=== PATIENT | female | born 1995 | race Caucasian/White ===

== ENCOUNTER 2024-03-14 09:46 | Outpatient (REF) | payer OTHER, SELFPAY ==
[2024-03-14 10:45] LABS: MANUAL DIFF FLAG NO
[2024-03-14 11:51] LABS: Basophils Absolute Auto 0.1 X10*3/uL (0.0-0.2); Basophils Percent Auto 0.7 % (0-2); Eosinophils Absolute Auto 0.1 X10*3/uL (0.0-0.4); Eosinophils Percent Auto 0.7 % (0-4); Hematocrit 41.7 % (37.0-47.0); Imm Gran Abs Auto 0.03 X10*3/uL (0.00-0.03); Imm Gran Pct Auto 0.4 % (0.0-0.4); Lymphocytes Absolute Auto 2.9 X10*3/uL (1.2-4.9); Lymphocytes Percent Auto 39.4 % (20-40); Mean Corpuscular HGB Conc 33.6 g/dl (31.0-35.0); Mean Corpuscular Volume 92.5 fL (80.0-98.0); Mean Platelet Volume 11.2 fL (9.4-12.3); Monocytes Absolute Auto 0.5 X10*3/uL (0.1-1.2); Monocytes Percent Auto 6.2 % (2-11); Neutrophils Absolute Auto 3.8 x10*3/uL (2.0-8.3); Neutrophils Percent Auto 52.6 % (45-73); Platelet Count 231 X10*3/uL (160-400); Red Blood Count 4.51 X10*6/uL (4.20-5.50); Red Cell Distribution Width 12.3 % (11.0-16.0); White Blood Count 7.2 X10*3/uL (4.8-10.8)
[2024-03-14 12:49] LABS: Alanine Aminotransferase 32 U/L (0-31); Albumin Level 4.4 g/dL (3.5-5.0); Alkaline Phosphatase 77 U/L (39-117); Anion Gap 16 (12-20); Aspartate Amino Transferase 26 U/L (5-31); Bilirubin Total 0.4 mg/dL (0.0-1.0); Blood Urea Nitrogen 16 mg/dL (9-16); Calcium 9.8 mg/dL (8.4-10.2); Carbon Dioxide 25 mmol/L (22-29); Chloride 103 mmol/L (96-108); Estimated Glomerular Filt Rate > 60; Ferritin 57 ng/mL (10-122); Glucose Random 72 mg/dL (60-115); Iron 89 mcg/dL (30-160); Percent Iron Saturation 29 % (15-50); Potassium 3.9 mmol/L (3.3-5.1); Sodium 140 mmol/L (135-145); Total Iron Binding Capacity 312 mcg/dL (228-428); Total Protein 7.2 g/dL (6.5-8.0); Unsaturated Iron Binding 223 ug/dL
== END 2024-03-14 09:47 | disposition home or self-care (01) ==
LOC: HO.LAB 09:46
PROVIDERS: Visit Provider Preventive Medicine Public Health & General Preventive Medicine
DX: R53.83 Other fatigue (principal); R00.2 Palpitations; R06.02 Shortness of breath
CPT/HCPCS: 36415; 80053; 82728; 83540; 85025

== ENCOUNTER 2024-05-03 14:27 | Outpatient (AMB) | payer OTHER, SELFPAY ==
--- NOTE | 2024-05-03 14:29 | A.OFFVIS_ITS ---
Vital Signs 05/03/24 14:30 Height 5 ft 3 in Weight 128 lb 4.944 oz BMI 22.7 BP 105/59 L Blood Pressure Location Lt brachial Position Sitting Pulse 69 Intake Visit Reasons: Gastroesophageal reflux disease (GERD) Intake Note: Kimi presents as a new patient for GERD. CC: Patient c/o acid reflux for about 2 years. She states that she was treated with Omeprazole and per PT it helped but it did not completely got rid of it . She modified her diet trying to avoid acidic foods and her symptoms have improved. 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 Symptoms are worst after big meals. 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 Patient was sent to us by her PCP. Patient reports that she has been dealing with acid reflux on and off for several months. Patient was placed on PPI she believes it was omeprazole and reports that her symptoms got better, however patient also admits that she changed her diet. Patient stopped taking the medication when she went to see alternative medicine provider. Patient was taking naturopathic drops that were given to her by alternative medicine provider. Patient also reports that she changed her diet completely. Eating smaller meals. Patient states that she also drinking lots of fluids and is exercising a lot. Occasional epigastric pain postprandially depending on what she eats. Reports occasional dyspepsia without dysphagia or odynophagia. Patient denies any melena, hematochezia, unintentional weight loss or ribbon like stools. [facility] Surgical History H/O cervical biopsy Family History Father Crohn disease Social History Alcohol intake: current Alcohol intake frequency: holidays/special occasions only Patient Tobacco Use Status: Never used Tobacco Review of Systems Const Denies weight gain and Denies weight loss ENT Reports no additional complaints, Denies dysphagia and Denies odynophagia Card Reports no additional complaints Resp Reports no additional complaints GI Reports abdominal pain (Epigastric pain), Denies belching, Denies melena, Reports bloating, Denies change in bowel habits, Denies dysphagia, Denies excessive flatus, Denies dyspepsia, Reports heartburn, Denies diarrhea, Denies loose stools, Denies nausea, Denies odynophagia and Denies vomiting Reports no additional complaints Musc Reports no additional complaints Neuro Reports no additional complaints Psych Reports no additional complaints Endo Reports no additional complaints Physical Exam Vital Signs: Last Vital Signs Pulse 69 05/03/24 14:30 BP 105/59 L 05/03/24 14:30 BMI result Body Mass Index 22.7 Const General: healthy appearing, no acute distress and well developed Nutritional Appearance: well nourished Orientation/consciousness: patient oriented x3 Resp Effort & Inspection: normal respiratory effort, able to speak in complete sentences, no tracheal deviation and symmetric chest movement Auscultation: clear to auscultation bilaterally Cardio Rate: regular rate GI Inspection: Yes normal to inspection and No distended Palpation (GI): Soft to palpation, not firm, nontender and No hepatosplenomegaly present Auscultation: normal bowel sounds General: Yes no CVA tenderness Back/Spine/Pelvis Back: no CVA tenderness Skin General skin exam: elasticity normal, turgor normal and dry skin Neuro General: patient oriented x3 Psych Appearance: grossly normal Mental Status: mental status grossly normal Assessment & Plan Assessment & Plan (1) Postprandial epigastric pain: Code(s): R10.13 - Epigastric pain (2) Abdominal bloating: Code(s): R14.0 - Abdominal distension (gaseous) Plan Will hold off on giving patient any PPI for now. Patient is reluctant to taking any medications. Would rather avoid food if possible. Low FODMAP diet discussed with patient. List of food recommended as well as list of food to avoid given to patient. Patient reports epigastric pain occasionally and abdominal bloating depending on what she eats. Will rule out celiac. Will check for H pylori in the office today. Will do upper GI/small-bowel to rule out reflux/hiatal hernia. Will check lipase and liver profile. Patient will be sent for upper endoscopy to rule out duodenitis, gastritis, esophagitis, Barretts, H pylori. Avoid food spicy, any other triggers. Avoids eating late at night. Small meals more often. I will see patient after endoscopy, sooner on as needed basis. She is agreeable to this plan and verbalizes understanding of instructions. She was given the opportunity to ask questions and all questions answered. Thank you for allowing me to participate in her care Orders: Orders Transglutaminase IgA 05/04/24 R10.9 - Unspecified abdominal pain Vitamin B12 and Folate 05/04/24 R19.7 - Diarrhea, unspecified Vitamin D 25-OH (D2 and D3) 05/04/24 E55.9 - Vitamin D deficiency, unspecified FL upper GI small bowel 05/03/24 K21.9 - Gastro-esophageal reflux disease without esophagitis H Pylori Breath Test 05/03/24 K21.9 - Gastro-esophageal reflux disease without esophagitis Transglutaminase Ab IgG 05/04/24 R10.9 - Unspecified abdominal pain Lipase 05/04/24 R10.9 - Unspecified abdominal pain Liver Panel 05/04/24 R74.01 - Elevation of levels of liver transaminase levels Coding Level of Care Code Est Pt Level 3 (70899) Diagnoses Postprandial epigastric pain R10.13 Abdominal bloating R14.0 Time Spent (min) 40 Comment 30 minutes spent with patient and additional 10 minutes spent reviewing her records
[2024-05-03 14:30] VITALS: BP 105/59; PULSE 69; BMI 22.7
== END 2024-05-03 16:27 | disposition home or self-care (01) ==
PROVIDERS: Visit Provider Nurse Practitioner Family
DX: R10.13 Epigastric pain (principal); R14.0 Abdominal distension (gaseous)
CPT/HCPCS: 99213

== ENCOUNTER → 2024-05-03 14:27 | Outpatient (BNVA) | payer OTHER, SELFPAY ==
[2024-05-04 11:36] LABS: H Pylori Breath Test Negative (Negative)
== END ==
LOC: CF 05-04 12:37
PROVIDERS: Visit Provider Nurse Practitioner Family
DX: R10.13 Epigastric pain (principal); R14.0 Abdominal distension (gaseous); K21.9 Gastro-esophageal reflux disease without esophagitis
CPT/HCPCS: 83013

== ENCOUNTER 2024-05-04 09:10 | Outpatient (REF) | payer OTHER, SELFPAY ==
[2024-05-04 10:29] LABS: Alanine Aminotransferase 24 U/L (0-31); Albumin Level 4.2 g/dL (3.5-5.0); Alkaline Phosphatase 66 U/L (39-117); Aspartate Amino Transferase 23 U/L (5-31); Bilirubin Direct 0.1 mg/dL (0.0-0.5); Bilirubin Total 0.5 mg/dL (0.0-1.0); Lipase 15 U/L (8-78); Total Protein 6.8 g/dL (6.5-8.0)
[2024-05-04 11:11] LABS: Vitamin B12 1028 pg/mL (200-900)
[2024-05-05 13:44] LABS: Transglutaminase Ab IgG <1.0 U/mL; Transglutaminase IgA <1.0 U/mL
[2024-05-09 14:27] LABS: Vitamin D 25-OH, D2 <4 ng/mL; Vitamin D 25-OH, D3 26 ng/mL; Vitamin D 25-OH, Total 26 ng/mL (30-100)
== END 2024-05-04 09:11 | disposition home or self-care (01) ==
LOC: HO.LAB 09:10
PROVIDERS: PCP Internal Medicine; Visit Provider Nurse Practitioner Family
DX: R19.7 Diarrhea, unspecified (principal); R10.9 Unspecified abdominal pain; E55.9 Vitamin D deficiency, unspecified; R74.01 Elevation of levels of liver transaminase levels
CPT/HCPCS: 36415; 80076; 82306; 82607; 82746; 83690; 86364

== ENCOUNTER 2024-05-11 07:29 | Outpatient (REF) | payer OTHER, SELFPAY ==
--- NOTE | ~2024-05-11 | FL_ITS ---
EXAMINATION: XR UPPER GI SERIES WITH SMALL BOWEL CLINICAL INFORMATION: Reflux COMPARISON: None TECHNIQUE: Fluoroscopic air contrast upper GI examination was performed utilizing standard techniques with thin and thick barium and effervescent granules. Numerous spot images were obtained. FINDINGS: UPPER GI: Dual and single contrast images of the esophagus demonstrate normal caliber, contour, and mucosal pattern. No evidence of stricture, mass, or ulcerations identified. Esophageal peristalsis was normal. No evidence of hiatus hernia identified. A small amount of gastroesophageal reflux is seen in the distal esophagus. Dual contrast and single contrast images of the stomach demonstrated a normal contour. There is a foci of contrast pooling in the gastric antrum that may represents small superficial ulcer. No masses are present. Contrast freely passed into the gastric antrum and duodenal bulb without delay. Single and air-contrast images of the duodenal bulb demonstrate no abnormality. The duodenal sweep has a normal appearance, course, and mucosal fold appearance. SMALL BOWEL SERIES: Commercial Subcontractor view demonstrates normal/nonspecific bowel gas pattern. No dilated loops. Lung bases clear. Elevated right hemidiaphragm noted. No bony abnormalities. No abnormal calcifications or evidence of organomegaly. Normal-appearing SI joints. The imaged small bowel has a normal fold pattern and caliber. No masses or strictures or dilated loops are present. Contrast is observed in the right colon after 30 minutes. FLUOROSCOPY TIME: 4 minutes 2 seconds Number of Spot Images: 11 Number of Cine: 13 DOSE AREA PRODUCT: 1891 uGy-m2 (microgray-meter squared) FL/FL upper GI small bowel IMPRESSION: 1. Mild gastroesophageal reflux 2. There is a small focus of contrast pooling in the gastric antrum seen on one view that likely represents a small superficial aphthous ulcer. Recommend correlation with EGD. 3. Normal small bowel series. There is rapid transit of contrast to the right colon at 30 minutes, with no clear etiology evident. Recommend clinical correlation. This procedure was performed by Kalyan Myers PA-C, and supervised by Dr. Ta
== END 2024-05-11 07:30 | disposition home or self-care (01) ==
LOC: HO.XRAY 07:29
PROVIDERS: Visit Provider Nurse Practitioner Family
DX: K21.9 Gastro-esophageal reflux disease without esophagitis (principal)
CPT/HCPCS: 74240; 74248

== ENCOUNTER → 2024-05-11 07:30 | Outpatient (BNV) | payer OTHER, SELFPAY | PROVIDERS: Visit Provider Physician Assistant Surgical | DX: K21.9 Gastro-esophageal reflux disease without esophagitis (principal) | CPT/HCPCS: 74246; 74248 ==

== ENCOUNTER 2024-09-07 09:47 | Day surgery (SDC) | payer OTHER, SELFPAY ==
[2024-09-05 13:13] VITALS: BMI 22.7
--- NOTE | 2024-09-06 09:22 | HO.ANESPROP2 ---
Documented by User: Ailyn Leal NP 09/06/24 09:22 HPI - Anesthesia Eval Consult details Narrative: 29yo F for Upper Endoscopy PMFSH Family History Family History Father Crohn disease Surgical History Surgical History H/O cervical biopsy Social History Social History Alcohol intake: current Alcohol intake frequency: holidays/special occasions only Patient Tobacco Use Status: Never used Tobacco Use of substances other than those prescribed or required for medical reasons: Yes Substance Use Type Other:: edibles none last few days Substance Use Frequency: Occasionally Are you DNR?: No Advance Directives: No Advance Directives Information Provided: Yes Recently lost weight without trying: No Meds Allergies Allergy/AdvReac Type Severity Reaction Status Date / Time No Known Allergies Allergy Verified 09/07/24 10:01 Home Medications ?Medication ?Instructions ?Recorded ?Confirmed ?Last Taken ?Type ibuprofen 200 mg tablet 500 mg PO Q6H PRN 05/03/24 Unknown History omeprazole 20 mg capsule,delayed 20 mg PO DAILY 09/07/24 09/07/24 09/07/24 09:00 History release Exam Height,Weight and Vital Signs: Height 5 ft 3 in Weight 58.06 kg Assessment and Plan Assessment Anesthesia Assessment: Chart Reviewed Documented by User: Laura Price MD 09/07/24 10:31 PMFSH Active Problems Active Problems: GERD Family History Family History Father Crohn disease Surgical History Surgical History H/O cervical biopsy History of Problems with Anesthesia: No Social History Social History Alcohol intake: current Alcohol intake frequency: holidays/special occasions only Patient Tobacco Use Status: Never used Tobacco Use of substances other than those prescribed or required for medical reasons: Yes Substance Use Type Other:: edibles none last few days Substance Use Frequency: Occasionally Are you DNR?: No Advance Directives: No Advance Directives Information Provided: Yes Recently lost weight without trying: No Meds Allergies Allergy/AdvReac Type Severity Reaction Status Date / Time No Known Allergies Allergy Verified 09/07/24 10:01 Home Medications ?Medication ?Instructions ?Recorded ?Confirmed ?Last Taken ?Type ibuprofen 200 mg tablet 500 mg PO Q6H PRN 05/03/24 Unknown History omeprazole 20 mg capsule,delayed 20 mg PO DAILY 09/07/24 09/07/24 09/07/24 09:00 History release Exam Airway Mallampati Class: II TM Dist: >3cm Neck ROM: Full Loose/Missing/Broken Teeth: No Heart: RRR Lungs: CTA Assessment and Plan Assessment Anesthesia Assessment: Anesthesia Plan Discussed Final Anesthetic Review History of Problems with Anesthesia: No NPO: Yes ASA Class: II Final Preanesthetic Review: Meds/Allgs Chart Reviewed, Consent Obtained/Reviewed and Anes Risks/Benef Reviewed Patient Risk: Low Procedure Risk: Intermediate Anesthetic Plan Anesthetic Plan: MAC: Disposition: Standard PACU
[2024-09-07 10:01] VITALS: BMI 22.1
[2024-09-07 10:09] VITALS: BP 95/60; PULSE 71; RESP 15; TEMP 36.6; O2SAT 98
[2024-09-07 10:12] LABS: Urine Pregnancy NEGATIVE (NEGATIVE)
[2024-09-07 10:13] LABS: UPreg QC Valid YES
--- NOTE | 2024-09-07 10:15 | MHC.SHP ---
Pre-Procedural Eval Section A - 24 Hr Update-Section A only Date of Service: 09/07/24 Section B - Complete if H&P > 30 days Chief Complaint: gerd Relevant Family History (Specify if Yes): No Relevant Social History: None Present Medications: see Short Stay Collaborative assessment Medical History: Significant History (gerd) History of Previous Operations: Relevant previous surgery/procedure and date(s) (cervical bx) Allergies: Allergies Allergy/AdvReac Type Severity Reaction Status Date / Time No Known Allergies Allergy Verified 09/07/24 10:01 Review of Systems Sugical H&P ROS: Negative: Constitution, Cardiovascular, Respiratory, Neurological, Psychiatric, Hem-Onc, Allergic/Immunologic, Gastrointestinal, Genitourinary, Musculoskeletal, Integumentary, Endocrine and Eyes/Ears/Nose/Throat Exam Surgical H&P Exam: Normal: HEENT, Normal: Heart, Normal: Lungs, Normal: Extremities, Normal: Abdomen, Normal: Skin and Normal: Neurological Plan Diagnosis/Plan: Unchanged I have reviewed the history and physical and performed a pertinent physical examination on my patient. No changes have occurred unless specified. Time Spent With Patient Time: Total time managing care of this patient today ____ minutes.
[2024-09-07] MEDS: Lactated Ringers 1,000 ML 100 ML IVCONT (10:18)
--- NOTE | 2024-09-07 10:47 | W.PM.OPN ---
Operative Note Operative Note Date of Service: 09/07/24 Narrative: Procedure Description: EGD Indication: GERD Anesthesia: MAC FLEXIBLE TRANSORAL UPPER GASTROINTESTINAL ENDOSCOPY UPPER ENDOSCOPY Consent: Indications for the procedure and potential complications of bleeding, perforation, reaction to medications and missed diagnosis were discussed with the patient and informed consent was obtained. Instrument: Olympus GIF H 190 J mid size upper endoscope Monitoring: Vital signs and clinical assessment, continuous EKG monitoring, Pulse oximetry, Carbon Dioxide monitoring and blood pressure monitoring were done throughout the procedure. Procedure: The patient was placed in the left lateral decubitis position and pre-procedure medications were administered and a bite block was placed. The endoscope was inserted into the mouth and advanced under direct vision to the third part of duodenum. A careful inspection was made as the upper endoscope was withdrawn including a retroflexed examination of the proximal stomach; Findings and interventions are described below. Findings: Larynx:normal Esophagus: GE junction at 38 cm, diaphragm hiatus at 38 cm, ringing of mucosa noted, bx taken from GEJ, prox and distal esophagus, mild esophagitis noted Stomach: mild gastritis . Biopsies were obtained. Grade 2 flap valve on retroflexed examination of the cardia. Reduced motility, Duodenum: Normal bulb and descending duodenum, bx taken Intervention: Biopsies as noted above, Impression/Findings: gastritis mild esophagitis possible gastroparesis PLAN: check if taking PPI correctly GERD precautions
[2024-09-07 11:12] VITALS: BP 85/40; PULSE 65; RESP 18; TEMP 36.4; O2SAT 96
[2024-09-07 11:27] VITALS: BP 95/56; PULSE 77; RESP 16; O2SAT 100
[2024-09-07 11:43] VITALS: BP 101/51; PULSE 61; RESP 16; TEMP 36.4; O2SAT 99
== END 2024-09-07 12:13 | disposition home or self-care (01) ==
PROVIDERS: Nurse Practitioner; Visit Provider Internal Medicine Gastroenterology
PROC: 0DJ08ZZ Inspection of Upper Intestinal Tract, Via Natural or Artificial Opening Endoscopic (ICD-10-PCS; CPT 43235; principal; 2024-09-07 11:40)
DX: K21.9 Gastro-esophageal reflux disease without esophagitis (principal); K20.80 Other esophagitis without bleeding; K29.60 Other gastritis without bleeding; K22.0 Achalasia of cardia; K44.9 Diaphragmatic hernia without obstruction or gangrene; Z79.899 Other long term (current) drug therapy
CPT/HCPCS: 43239; 81025; 88305; 88313; 88342; J2003; J2704

== ENCOUNTER → 2024-09-07 09:47 | Outpatient (BNV) | payer OTHER, SELFPAY | PROVIDERS: Visit Provider Internal Medicine Gastroenterology | DX: K21.00 Gastro-esophageal reflux disease with esophagitis, without bleeding (principal); K29.70 Gastritis, unspecified, without bleeding; K31.84 Gastroparesis | CPT/HCPCS: 43239 ==

== ENCOUNTER 2025-02-26 10:23 | Outpatient (AMB) | payer OTHER, SELFPAY ==
--- NOTE | 2025-02-26 10:27 | A.OFFVIS_ITS ---
Vital Signs 02/26/25 10:28 Height 5 ft 3 in Weight 125 lb BMI 22.1 BP 114/58 L Blood Pressure Location Lt brachial Position Sitting Pulse 68 Pulse Source Pulse Oximeter Pulse Oximetry (%) 100 Oxygen Delivery Method Room Air Intake Visit Reasons: Gastroesophageal reflux disease (GERD) Intake Note: ESTABLISHED PATIENT for s/p egd FUV, mgmt of GERD. CORY 08/2024. Chief Complaint; Pt denies any GI sx at this time. Pt taking PPI PRN instead of daily per their need based on sx presentation. Pt typically manages sx with diet and is doing well. 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 Patient is reluctant to taking any medications. Would rather avoid food if possible. Low FODMAP diet discussed with patient. List of food recommended as well as list of food to avoid given to patient. Patient reports epigastric pain occasionally and abdominal bloating depending on what she eats. Will rule out celiac. Will check for H pylori in the office today. Will do upper GI/small-bowel to rule out reflux/hiatal hernia. Will check lipase and liver profile. Patient will be sent for upper endoscopy to rule out duodenitis, gastritis, esophagitis, Barretts, H pylori. Avoid food spicy, any other triggers. Avoids eating late at night. Small meals more often. I will see patient after endoscopy, sooner on as needed basis. She is agreeable to this plan and verbalizes understanding of instructions. She was given the opportunity to ask questions and all questions answered. ? Thank you for allowing me to participate in her care Orders Orders Transglutaminase IgA 05/04/24 R10.9 Vitamin B12 and Folate 05/04/24 R19.7 Vitamin D 25-OH (D2 and D3) 05/04/24 E55.9 FL upper GI small bowel 05/03/24 K21.9 H Pylori Breath Test 05/03/24 K21.9 Transglutaminase Ab IgG 05/04/24 R10.9 Lipase 05/04/24 R10.9 Liver Panel 05/04/24 R74.01 UPPER ENDOSCOPY Findings: Larynx:normal Esophagus: GE junction at 38 cm, diaphragm hiatus at 38 cm, ringing of mucosa noted, bx taken from GEJ, prox and distal esophagus, mild esophagitis noted Stomach: mild gastritis . Biopsies were obtained. Grade 2 flap valve on retroflexed examination of the cardia. Reduced motility, Duodenum: Normal bulb and descending duodenum, bx taken Intervention: Biopsies as noted above, Impression/Findings: gastritis mild esophagitis possible gastroparesis PLAN: check if taking PPI correctly GERD precautions PATHOLOGY: Diagnosis A. Duodenum, biopsy: Duodenal mucosa within normal limits; preserved villous architecture and no increased intraepithelial lymphocytes seen. B. Stomach, biopsy: Gastric antral and body mucosa within normal limits; negative for Helicobacter pylori, intestinal metaplasia and dysplasia. C. Gastroesophageal junction, biopsy: Gastric cardia type mucosa with mild chronic inflammation; no squamous mucosa seen; negative for intestinal metaplasia and dysplasia. D. Esophagus, distal, biopsy: Squamous mucosa within normal limits; negative for inflammation (including intraepithelial eosinophils), fungal organisms, intestinal metaplasia and dysplasia. E. Esophagus, proximal, biopsy: Squamous mucosa within normal limits; negative for inflammation (including intraepithelial eosinophils), fungal organisms, intestinal metaplasia and dysplasia TODAY Patient is here today for follow-up and to discuss upper endoscopy and lab results. Upper endoscopy showed mi chronic inflammation at the GE junction otherwise normal. Lab results also normal except for mildly low vitamin-D. Patient reports that she started taking multivitamins. Patient will checked amount of vitamin-D. Can take 2000 units daily. Patient reports that she has been feeling well. Started changing her diet and avoiding dietary triggers. Patient states that acid reflux only occasionally if she eats something that will trigger her symptoms. Only uses omeprazole if she knows she will be going out or eating something that will affect her. Denies any dyspepsia, dysphagia or odynophagia. Patient denies any GI concerning symptoms. Denies any abdominal pain or discomfort. New reports that she is moving her bowels well. [facility] Medical History (Updated 02/26/25 @ 10:36 by BharatMORGAN Castro) GERD (gastroesophageal reflux disease) Surgical History (Updated 02/26/25 @ 10:31 by MORGAN Galvin) History of esophagogastroduodenoscopy (EGD) H/O cervical biopsy Family History Father Crohn disease Social History Alcohol intake: current Alcohol intake frequency: holidays/special occasions only Patient Tobacco Use Status: Never used Tobacco Physical Exam Vital Signs: Last Vital Signs Pulse 68 02/26/25 10:28 BP 114/58 L 02/26/25 10:28 Pulse Ox 100 02/26/25 10:28 Oxygen Delivery Method Room Air 02/26/25 10:28 BMI result Body Mass Index 22.1 Results Reviewed Results Reviewed: Laboratory Tests 05/03/24 05/04/24 15:30 09:28 Total Bilirubin 0.5 Direct Bilirubin 0.1 AST 23 ALT 24 Alkaline Phosphatase 66 Lipase 15 Vitamin B12 1028 H 25-OH Vitamin D Total 26 L Folate 11.0 Tiss Transglutamin IgA <1.0 H. pylori Breath Test Negative Assessment & Plan Assessment & Plan (1) Postprandial epigastric pain: Code(s): R10.13 - Epigastric pain (2) Abdominal bloating: Code(s): R14.0 - Abdominal distension (gaseous) Plan Continue avoiding dietary triggers only time snacking. Staying upright for minimal 3 hours after meals discussed with patient. Patient will follow-up in our office as needed. She is agreeable to this plan and verbalizes understanding of instructions. She was given the opportunity to ask questions and all questions answered. Thank you for allowing me to participate in her care Coding Level of Care Code Est Pt Level 3 (00103) Diagnoses Postprandial epigastric pain R10.13 Abdominal bloating R14.0 Time Spent (min) 25 Comment 15 minutes spent with patient and additional 10 minutes spent reviewing her records
[2025-02-26 10:28] VITALS: BP 114/58; PULSE 68; O2SAT 100; BMI 22.1
== END 2025-02-26 10:52 | disposition home or self-care (01) ==
PROVIDERS: Visit Provider Nurse Practitioner Family
DX: R10.13 Epigastric pain (principal); R14.0 Abdominal distension (gaseous)
CPT/HCPCS: 99213

== ENCOUNTER → 2025-02-26 10:23 | Outpatient (BNVA) | payer OTHER, SELFPAY | PROVIDERS: Visit Provider Nurse Practitioner Family ==